=== PATIENT | male | born 1935 | race Asian ===

== ENCOUNTER 2019-06-19 23:23 | Emergency (ER) | payer MEDICAID ==
[~2019-06-19] VITALS: Ht 160 cm; Wt 68.0 kg
--- NOTE | 2019-06-19 23:40 | Emergency Room Report ---
History of Present Illness General Chief Complaint: Head Injury Source: Patient Present Illness HPI Patient is an 84 -year-old male presents after recent fall. She reportedly slipped on wet ground. He had injury to the right side of his forehead. He denies loss of consciousness. He reports having no pain to his head or to his neck. He did not take anticoagulation apart from my aspirin. Allergies: Coded Allergies: No Known Allergies (Unverified , 06/19/19) Patient History Past Medical History: see triage record Reviewed Nursing Documentation: PMH: Agreed; PSxH: Agreed Nursing Documentation-PMH Past Medical History: No History, Except For Hx Hypertension: Yes Hx Diabetes: Yes Review of Systems All Other Systems: negative except mentioned in HPI Physical Exam Vital Signs Date Time Temp Pulse Resp B/P (MAP) Pulse Ox O2 Delivery O2 Flow Rate FiO2 06/19/19 23:28 98.2 102 18 111/59 (76) 96 Room Air Sp02 EP Interpretation: reviewed, normal General Appearance: normal inspection, well appearing, no apparent distress, alert Head: other - right forehead swelling ENT: normal ENT inspection, hearing grossly normal, normal voice Neck: normal inspection, full range of motion, supple, no bony tend Respiratory: normal inspection, lungs clear, normal breath sounds, no respiratory distress, no retraction, no wheezing Cardiovascular #1: regular rate, rhythm, no edema Gastrointestinal: normal inspection, normal bowel sounds, non tender, soft, no guarding, no hernia Genitourinary: no CVA tenderness Musculoskeletal: normal inspection, back normal, normal range of motion Neurologic: alert, responsive, speech normal, normal inspection Psychiatric: normal inspection, judgement/insight normal, mood/affect normal Skin: other - skin abrasion to forehead, no lacerations Medical Decision Making Diagnostic Impression: Primary Impression: Head injury Additional Impression: Head contusion ER Course Patient presented after a fall. Differential diagnosis included was not limited to neck fracture, CVA, close head injury, syncopal episode, basilar ischemia. CT imaging was ordered to the patient's head due to recent trauma. He appears to have preserved range of motion of his neck and does not show any evidence of acute fracture. Neck is nontender.Tetanus vaccine was updated. CT of the head read by radiology showed no evidence of acute intracranial pathology as well as generalized atrophy. Patient will be discharged home. Patient's family members were given return precautions. Patient was return for altered mental status persistent vomiting or any other concerns. Patient's family members were also advised to have the patient recheck with his primary care physician in 1 to 2 days. Last Vital Signs Date Time Temp Pulse Resp B/P (MAP) Pulse Ox O2 Delivery O2 Flow Rate FiO2 06/19/19 23:28 98.2 102 18 111/59 (76) 96 Room Air Status: improved Disposition: HOME, SELF-CARE Condition: Stable Scripts Acetaminophen* (ACETAMINOPHEN EXTRA STRENGTH*) 500 Mg Tablet 500 MG ORAL Q8H PRN for Fever/Headache/Mild Pain, #30 TAB Prov: Ion Gibson MD 06/20/19 Ion Gibson MD Jun 19, 2019 23:39
[2019-06-19] MEDS ORDERED: Tetanus/Diptheria/Pertussis IM ONE (23:45)
--- NOTE | 2019-06-20 01:32 | Diagnostic Imaging Report ---
Indication: Headache Technique: Contiguous 5 mm thick transaxial imaging of the head obtained in a Siem[employer] Sensation [address] scanner. Soft tissue and bone windows generated. Automatic Exposure Control was utilized. Total Dose length Product (DLP): 1394.[address] Dose Index Volume (CTDIvol): 62.7 mGy Comparison: none Findings: There is moderate prominence of the ventricles, basal cisterns, and cerebral sulci consistent with atrophy. Moderate, nonspecific, white matter hypoattenuation is noted throughout the brain consistent with chronic small vessel disease. There is no midline shift, edema, acute hemorrhage, mass effect, or abnormal extra-axial fluid collections. Bones are unremarkable. Impression: No acute intracranial bleed, mass effect or edema. Moderate atrophy of the brain. Evidence of chronic small vessel disease involving white matter tracts. The CT scanner at [facility] is accredited by the [employer] and the scans are performed using dose optimization techniques as appropriate to a performed exam including Automatic Exposure control.
[2019-06-20] MEDS ORDERED: ACETAMINOPHEN500 M3 ORAL (01:35)
[2019-06-20 01:45] VITALS: BP 111/59
== END 2019-06-20 01:45 | disposition home or self-care (01) ==
LOC: EMR 23:59
DX: S09.90XA Unspecified injury of head, initial encounter (principal); S00.93XA Contusion of unspecified part of head, initial encounter; W01.0XXA Fall on same level from slipping, tripping and stumbling without subsequent striking against object, initial encounter; Y92.9 Unspecified place or not applicable; E11.9 Type 2 diabetes mellitus without complications; I10 Essential (primary) hypertension; Z23 Encounter for immunization
CPT/HCPCS: 70450; 90471; 90715; Z7502; 99284